=== PATIENT | female | born 1970 | race Caucasian/White ===

== ENCOUNTER 2017-09-30 19:55 | Emergency (ER) | payer MEDICARE, MEDICAID ==
[~2017-09-30] VITALS: Ht 167.6 cm; Wt 68.2 kg
[~2017-09-30 19:55] MED LIST: AMLO-511 PO; BUSP15 PO; DIPH25 PO; HYDR-4031 PO; METO25 PO; QUET200T PO
[2017-09-30] MEDS ORDERED: LISI-660 PO (20:08)
[2017-09-30] MEDS ORDERED: SODIUM CHLORIDE 0.9% 1,000 ML IV ONE (20:45)
[2017-09-30 21:00] LABS: BASOPHILS # (AUTO) 0.04 K/uL (0.00-0.20); BASOPHILS % (AUTO) 0.4 % (0.0-2.0); EOSINOPHILS # (AUTO) 0.01 K/uL (0.00-0.70); EOSINOPHILS % (AUTO) 0.11 % (1.0-6.0); HEMATOCRIT 32.4 % (36-46); HEMOGLOBIN 10.7 g/dL (12.0-16.0); LYMPHOCYTES # (AUTO) 1.2 K/uL (1.0-4.8); LYMPHOCYTES % (AUTO) 14.5 % (22.0-44.0); MEAN CORPUSCULAR HEMOGLOBIN 29.4 pg (26.0-34.0); MEAN CORPUSCULAR HGB CONC 33.2 G/dL (31.0-37.0); MEAN CORPUSCULAR VOLUME 89 fL (80-100); MONOCYTES # (AUTO) 0.9 K/uL (0.1-1.0); MONOCYTES % (AUTO) 11.4 % (2.0-9.0); NEUTROPHILS % (AUTO) 73.6 % (40.0-70.0); PLATELET COUNT (AUTO) 208 K/uL (150-450); RED BLOOD CELL COUNT(AUTO) 3.65 MIL/uL (4.00-5.20); RED CELL DISTRIBUTION WIDTH 14.5 % (11.5-14.5); WHITE BLOOD COUNT (AUTO) 8.2 K/uL (4.5-11.0)
[2017-09-30 21:10] LABS: ANION GAP 7 mmol/L (8-16); CALCIUM, TOTAL 8.1 mg/dL (8.8-10.5); CARBON DIOXIDE 28 mmol/L (22-29); CHLORIDE 100 mmol/L (98-107); CREATININE 0.63 mg/dL (0.60-1.30); GLOMERULAR FILTR. RATE CALC > 60 mL/min (>60); POTASSIUM 3.4 mmol/L (3.5-5.1); SODIUM SERUM 135 mmol/L (136-145); UREA NITROGEN, BLOOD 6 mg/dL (7-18)
[2017-09-30 21:17] LABS: ALANINE AMINOTRANSFERASE 47 U/L (12-78); ASPARTATE AMINOTRANSFERASE 51 U/L (15-37); BILIRUBIN,TOTAL 0.6 mg/dL (0.1-1.0); TOTAL PROTEIN, SERUM 6.2 g/dL (6.4-8.2)
[2017-09-30] MEDS ORDERED: POTASSIUM CHLORIDE 20 MEQ ER TABLET PO ONE (21:30)
[2017-09-30] MEDS ORDERED: KETOROLAC TROMETHAMINE 30 MG/ML VIAL IVP ONE (21:30)
[2017-09-30 22:30] LABS: INFLUENZA TYPE B POSITIVE FOR TYPE B (NEGATIVE)
[2017-09-30 22:42] VITALS: BP 176/82
== END 2017-10-01 04:55 | disposition home or self-care (01) ==
LOC: EMS 20:00
DX: J11.1 Influenza due to unidentified influenza virus with other respiratory manifestations (principal); R10.9 Unspecified abdominal pain; R11.0 Nausea; F17.210 Nicotine dependence, cigarettes, uncomplicated; F19.90 Other psychoactive substance use, unspecified, uncomplicated; Z88.0 Allergy status to penicillin; Z59.0 Homelessness
CPT/HCPCS: 36415; 80053; 84703; 85025; 87804; 96374; 99285; J1885; J7030

== ENCOUNTER 2017-10-26 15:02 | Emergency (ER) | payer MEDICARE, MEDICAID ==
[~2017-10-26] VITALS: Ht 167.6 cm; Wt 77.3 kg
[~2017-10-26 15:02] MED LIST changes: -AMLO-511 PO; +LISI-660 PO
[2017-10-26] MEDS ORDERED: OSEL75 PO (15:20)
[2017-10-26 16:42] VITALS: BP 128/75
== END 2017-10-26 17:20 | disposition home or self-care (01) ==
LOC: EMS 15:04
DX: J40 Bronchitis, not specified as acute or chronic (principal); J06.9 Acute upper respiratory infection, unspecified; F17.210 Nicotine dependence, cigarettes, uncomplicated; F19.90 Other psychoactive substance use, unspecified, uncomplicated; Z88.0 Allergy status to penicillin
CPT/HCPCS: 99283

== ENCOUNTER 2018-05-14 11:06 | Inpatient (IN) | payer MEDICARE, MEDICAID ==
[~2018-05-14] VITALS: Ht 167.6 cm; Wt 80.5 kg
[~2018-05-14 11:06] MED LIST changes: +AMLO5TAB4 PO; -BUSP15 PO; -DIPH25 PO; -HYDR-4031 PO; -LISI-660 PO; -METO25 PO
[2018-05-14 13:06] VITALS: BP 127/70
[2018-05-14 13:25] VITALS: BP 125/90
[2018-05-14] MEDS ORDERED: MAG HYDROX/AL HYDROX/SIMETH ES 30 ML SUSPENSION UDCUP PO PRN (13:30)
[2018-05-14] MEDS ORDERED: TUBERCULIN, PURIFIED PROTEIN DERIVATIVE 5 TU/0.1 ML SYG ID ONE (13:30)
[2018-05-14] MEDS ORDERED: HydrOXYzine PAMOATE 50 MG CAPSULE PO PRN (13:30)
[2018-05-14] MEDS ORDERED: GuaiFENesin/D-METHORPHAN [SUGAR-FREE] 200-20MG/10 ML SYRUP UDCUP PO PRN (13:30)
[2018-05-14] MEDS ORDERED: MAGNESIUM HYDROXIDE SUSPENSION 30 ML UDCUP PO PRN (13:30)
[2018-05-14] MEDS ORDERED: PROMETHAZINE HCL 25 MG TABLET PO PRN (13:30)
[2018-05-14] MEDS ORDERED: LOPERAMIDE HCL 2 MG CAPSULE PO PRN (13:30)
[2018-05-14] MEDS ORDERED: ACETAMINOPHEN 325 MG TABLET PO PRN (13:30)
[2018-05-14] MEDS ORDERED: LISI-662 PO (13:45)
[2018-05-14] MEDS ORDERED: DULO20CA30 PO (13:45)
[2018-05-14] MEDS ORDERED: BENZ1TAB10 PO (13:45)
[2018-05-14] MEDS ORDERED: BUSP10TA23 PO (13:45)
[2018-05-14] MEDS ORDERED: TERB250 PO (13:45)
[2018-05-14] MEDS ORDERED: PNEUMOCOCCAL VACCINE POLYVALENT 0.5 ML VIAL [PPSV23] IM ONE (14:30)
[2018-05-14 16:07] VITALS: BP 133/78
[2018-05-14] MEDS: BusPIRone HCL 15 MG TABLET PO SCH (16:26)
[2018-05-14] MEDS: THIAMINE HCL 100 MG TABLET PO SCH (16:27)
[2018-05-14] MEDS: BENZTROPINE MESYLATE 1 MG TABLET PO SCH (20:06)
[2018-05-14] MEDS ORDERED: QUEtiapine FUMARATE 200 MG TABLET PO SCH (21:00)
[2018-05-15 05:11] VITALS: BP 122/68
[2018-05-15] MEDS ORDERED: PETROLATUM,WHITE 71 GM JELLY TP PRN (06:45)
[2018-05-15] MEDS ORDERED: CloNIDine HCL 0.1 MG TABLET PO PRN (06:45)
[2018-05-15] MEDS ORDERED: ALBUTEROL SULFATE HFA 90 MCG/PUFF 8 GM INHALER IH PRN (06:45)
[2018-05-15] MEDS ORDERED: BENZOCAINE/MENTHOL LOZENGE MM PRN (06:45)
[2018-05-15] MEDS ORDERED: BACITRACIN 28.4 GM OINTMENT TP PRN (06:45)
[2018-05-15] MEDS ORDERED: ONDANSETRON HCL 4 MG TABLET PO PRN (06:45)
[2018-05-15] MEDS ORDERED: IBUPROFEN 600 MG TABLET PO PRN (06:45)
[2018-05-15] MEDS ORDERED: LOPERAMIDE HCL 2 MG CAPSULE PO PRN (06:45)
[2018-05-15 08:18] VITALS: BP 131/78
[2018-05-15] MEDS: NALTREXONE HCL 50 MG TABLET PO SCH (08:33)
[2018-05-15] MEDS: DOCUSATE SODIUM 100 MG CAPSULE PO SCH (08:33)
[2018-05-15] MEDS: DULoxetine HCL 60 MG CAPSULE PO SCH (08:33)
[2018-05-15] MEDS: LISINOPRIL 20 MG TABLET PO SCH (08:33)
[2018-05-15] MEDS: THIAMINE HCL 100 MG TABLET PO SCH ×2 (08:33→16:13)
[2018-05-15] MEDS: OMEPRAZOLE 20 MG CAPSULE PO SCH (08:33)
[2018-05-15] MEDS: FOLIC ACID 1 MG TABLET PO SCH (08:33)
[2018-05-15] MEDS: MULTIVITAMINS WITH MINERALS, THERAPEUTIC TABLET PO SCH (08:33)
[2018-05-15] MEDS: BusPIRone HCL 15 MG TABLET PO SCH ×2 (08:33→16:13)
[2018-05-15 08:46] LABS: BASOPHILS % (AUTO) 0.6 % (0.0-2.0); HEMATOCRIT 34.9 % (36-46); HEMOGLOBIN 11.7 g/dL (12.0-16.0); LYMPHOCYTES # (AUTO) 1.4 K/uL (1.0-4.8); LYMPHOCYTES % (AUTO) 18.8 % (22.0-44.0); MEAN CORPUSCULAR HEMOGLOBIN 29.2 pg (26.0-34.0); MEAN CORPUSCULAR HGB CONC 33.4 G/dL (31.0-37.0); MEAN CORPUSCULAR VOLUME 87 fL (80-100); MONOCYTES # (AUTO) 0.7 K/uL (0.1-1.0); MONOCYTES % (AUTO) 9.6 % (2.0-9.0); NEUTROPHILS # (AUTO) 5.2 K/uL (1.8-7.7); PLATELET COUNT (AUTO) 226 K/uL (150-450); RED CELL DISTRIBUTION WIDTH 15.8 % (11.5-14.5)
[2018-05-15 08:49] LABS: HEMOGLOBIN A1C 5.4 % (4.5-6.2)
[2018-05-15 09:14] LABS: ALANINE AMINOTRANSFERASE 30 U/L (12-78); ALBUMIN 2.7 g/dL (3.4-5.0); ALKALINE PHOSPHATASE 50 U/L (46-116); ANION GAP 6 mmol/L (8-16); ASPARTATE AMINOTRANSFERASE 27 U/L (15-37); BILIRUBIN,TOTAL 0.3 mg/dL (0.1-1.0); CARBON DIOXIDE 28 mmol/L (22-29); CHLORIDE 108 mmol/L (98-107); CHOL/HDL RATIO 1.7 (3.9-5.7); CHOLESTEROL 138 mg/dL (131-200); CREATININE 0.76 mg/dL (0.60-1.30); FREE T4 (FREE THYROXINE) 0.98 ng/dL (0.76-1.46); GLOMERULAR FILTR. RATE CALC > 60 mL/min (>60); GLUCOSE,RANDOM 143 mg/dL (70-110); HCG,QUANTITATIVE < 1 mIU/mL (0-6); HDL CHOLESTEROL 81 mg/dL (40-60); LDL CHOL (CALC.) 46 mg/dL (0-130); SODIUM SERUM 142 mmol/L (136-145); THYROID STIMULATING HORMONE 0.45 uIU/mL (0.36-3.74); TOTAL PROTEIN, SERUM 5.9 g/dL (6.4-8.2); TRIGLYCERIDES 56 mg/dL (15-150); UREA NITROGEN, BLOOD 25 mg/dL (7-18)
[2018-05-15] MEDS: LORazepam 1 MG TABLET PO PRN (16:48)
[2018-05-15] MEDS: BENZTROPINE MESYLATE 1 MG TABLET PO SCH (20:33)
[2018-05-15] MEDS: QUEtiapine FUMARATE 200 MG TABLET PO SCH (20:33)
[2018-05-15 20:48] VITALS: BP 148/81
[2018-05-15 21:33] VITALS: BP 137/78
[2018-05-16 06:31] VITALS: BP 138/89
[2018-05-16 08:50] LABS: APPEARANCE,URINE TURBID (CLEAR); BILIRUBIN,URINE NEGATIVE (NEGATIVE); GLUCOSE, URINE (UA) NEGATIVE (NEGATIVE); KETONES,URINE NEGATIVE (NEGATIVE); LEUKOCYTE ESTERASE ,URINE NEGATIVE (NEGATIVE); NITRATE,URINE NEGATIVE (NEGATIVE); OCCULT BLOOD,URINE NEGATIVE (NEGATIVE); PROTEIN,URINE NEGATIVE (NEGATIVE)
[2018-05-16 08:59] LABS: BACTERIA,URINE Few /HPF (None Seen); RBC,URINE None Seen /HPF (0-2); SQUAMOUS EPITHELIAL CELL,UR Moderate /LPF (None Seen); WBC,URINE None Seen /HPF (0-5)
[2018-05-16 09:02] LABS: AMPHET/METH SCREEN,URINE POSITIVE (NEGATIVE); BARBITURATE SCREEN, URINE NEGATIVE (NEGATIVE); BENZODIAZEPINES SCREEN,URINE NEGATIVE (NEGATIVE); CANNABINOID SCREEN,URINE NEGATIVE (NEGATIVE); COCAINE SCREEN,URINE NEGATIVE (NEGATIVE); METHADONE SCREEN, URINE NEGATIVE (NEGATIVE); OPIATE SCREEN,URINE NEGATIVE (NEGATIVE); PHENCYCLIDINE SCREEN,URINE NEGATIVE (NEGATIVE)
[2018-05-16] MEDS: NALTREXONE HCL 50 MG TABLET PO SCH (09:08)
[2018-05-16] MEDS: CHOLECALCIFEROL (VIT D3) 1,000 UNITS TABLET PO SCH (09:08)
[2018-05-16] MEDS: DULoxetine HCL 60 MG CAPSULE PO SCH (09:08)
[2018-05-16] MEDS: OMEPRAZOLE 20 MG CAPSULE PO SCH (09:08)
[2018-05-16] MEDS: BusPIRone HCL 15 MG TABLET PO SCH ×2 (09:08→17:11)
[2018-05-16] MEDS: MULTIVITAMINS WITH MINERALS, THERAPEUTIC TABLET PO SCH (09:08)
[2018-05-16] MEDS: LISINOPRIL 20 MG TABLET PO SCH (09:09)
[2018-05-16] MEDS: THIAMINE HCL 100 MG TABLET PO SCH ×2 (09:10→17:11)
[2018-05-16] MEDS: FOLIC ACID 1 MG TABLET PO SCH (09:10)
[2018-05-16] MEDS: DOCUSATE SODIUM 100 MG CAPSULE PO SCH (09:10)
[2018-05-16 18:19] VITALS: BP 140/85
[2018-05-16] MEDS: QUEtiapine FUMARATE 200 MG TABLET PO SCH (19:58)
[2018-05-16] MEDS: BENZTROPINE MESYLATE 1 MG TABLET PO SCH (19:59)
[2018-05-17 00:15] VITALS: BP 144/79
[2018-05-17] MEDS: LORazepam 1 MG TABLET PO PRN (07:00)
[2018-05-17] MEDS: NALTREXONE HCL 50 MG TABLET PO SCH (08:21)
[2018-05-17] MEDS: LISINOPRIL 20 MG TABLET PO SCH (08:21)
[2018-05-17] MEDS: FOLIC ACID 1 MG TABLET PO SCH (08:21)
[2018-05-17] MEDS: OMEPRAZOLE 20 MG CAPSULE PO SCH (08:21)
[2018-05-17] MEDS: DOCUSATE SODIUM 100 MG CAPSULE PO SCH (08:21)
[2018-05-17] MEDS: DULoxetine HCL 60 MG CAPSULE PO SCH (08:21)
[2018-05-17] MEDS: CHOLECALCIFEROL (VIT D3) 1,000 UNITS TABLET PO SCH (08:21)
[2018-05-17] MEDS: THIAMINE HCL 100 MG TABLET PO SCH ×2 (08:21→16:03)
[2018-05-17] MEDS: MULTIVITAMINS WITH MINERALS, THERAPEUTIC TABLET PO SCH (08:21)
[2018-05-17] MEDS: BusPIRone HCL 15 MG TABLET PO SCH ×2 (08:21→16:03)
[2018-05-17 08:31] VITALS: BP 155/93
[2018-05-17 12:53] VITALS: BP 183/93
[2018-05-17 13:53] VITALS: BP 157/93
[2018-05-17 14:34] VITALS: BP 141/88
[2018-05-17 20:00] VITALS: BP 140/89
[2018-05-17] MEDS: QUEtiapine FUMARATE 200 MG TABLET PO SCH (20:08)
[2018-05-17] MEDS: BENZTROPINE MESYLATE 1 MG TABLET PO SCH (20:08)
[2018-05-18 02:24] VITALS: BP 143/87
[2018-05-18 08:27] VITALS: BP 155/81
[2018-05-18] MEDS: MULTIVITAMINS WITH MINERALS, THERAPEUTIC TABLET PO SCH (08:30)
[2018-05-18] MEDS: LISINOPRIL 20 MG TABLET PO SCH (08:30)
[2018-05-18] MEDS: BusPIRone HCL 15 MG TABLET PO SCH ×2 (08:30→16:37)
[2018-05-18] MEDS: OMEPRAZOLE 20 MG CAPSULE PO SCH (08:30)
[2018-05-18] MEDS: NALTREXONE HCL 50 MG TABLET PO SCH (08:30)
[2018-05-18] MEDS: CHOLECALCIFEROL (VIT D3) 1,000 UNITS TABLET PO SCH (08:30)
[2018-05-18] MEDS: DOCUSATE SODIUM 100 MG CAPSULE PO SCH (08:30)
[2018-05-18] MEDS: FOLIC ACID 1 MG TABLET PO SCH (08:30)
[2018-05-18] MEDS: THIAMINE HCL 100 MG TABLET PO SCH ×2 (08:31→16:37)
[2018-05-18] MEDS: DULoxetine HCL 60 MG CAPSULE PO SCH (08:31)
[2018-05-18] MEDS: LORazepam 1 MG TABLET PO PRN ×2 (08:35→16:37)
[2018-05-18] MEDS ORDERED: ATENOLOL 50 MG TABLET PO SCH (09:00)
[2018-05-18] MEDS: ATENOLOL 25 MG TABLET PO SCH (12:16)
[2018-05-18 13:57] VITALS: BP 140/98
[2018-05-18 16:04] VITALS: BP 140/62
[2018-05-18] MEDS: QUEtiapine FUMARATE 100 MG TABLET PO PRN (16:37)
[2018-05-18] MEDS: BENZTROPINE MESYLATE 1 MG TABLET PO SCH (20:48)
[2018-05-18] MEDS: ZOLPIDEM TARTRATE 10 MG TABLET PO PRN (20:49)
[2018-05-18] MEDS: QUEtiapine FUMARATE 200 MG TABLET PO SCH (20:49)
[2018-05-19 06:08] VITALS: BP 136/90
[2018-05-19 08:43] VITALS: BP 124/64
[2018-05-19] MEDS: ATENOLOL 25 MG TABLET PO SCH (09:00)
[2018-05-19 09:22] VITALS: BP 118/68
[2018-05-19] MEDS: DULoxetine HCL 60 MG CAPSULE PO SCH (09:31)
[2018-05-19] MEDS: LISINOPRIL 20 MG TABLET PO SCH (09:31)
[2018-05-19] MEDS: THIAMINE HCL 100 MG TABLET PO SCH ×2 (09:31→16:33)
[2018-05-19] MEDS: OMEPRAZOLE 20 MG CAPSULE PO SCH (09:31)
[2018-05-19] MEDS: FOLIC ACID 1 MG TABLET PO SCH (09:31)
[2018-05-19] MEDS: NALTREXONE HCL 50 MG TABLET PO SCH (09:31)
[2018-05-19] MEDS: MULTIVITAMINS WITH MINERALS, THERAPEUTIC TABLET PO SCH (09:32)
[2018-05-19] MEDS: CHOLECALCIFEROL (VIT D3) 1,000 UNITS TABLET PO SCH (09:32)
[2018-05-19] MEDS: DOCUSATE SODIUM 100 MG CAPSULE PO SCH (09:32)
[2018-05-19] MEDS: BusPIRone HCL 10 MG TABLET PO SCH ×2 (09:32→16:33)
[2018-05-19] MEDS: LORazepam 1 MG TABLET PO PRN (16:33)
[2018-05-19] MEDS: QUEtiapine FUMARATE 100 MG TABLET PO PRN (16:33)
[2018-05-19 16:34] VITALS: BP 118/76
[2018-05-19] MEDS: QUEtiapine FUMARATE 200 MG TABLET PO SCH (20:23)
[2018-05-19] MEDS: BENZTROPINE MESYLATE 1 MG TABLET PO SCH (20:23)
[2018-05-19] MEDS: ZOLPIDEM TARTRATE 10 MG TABLET PO PRN (20:24)
[2018-05-20 06:35] VITALS: BP 134/74
[2018-05-20] MEDS: MULTIVITAMINS WITH MINERALS, THERAPEUTIC TABLET PO SCH (08:20)
[2018-05-20] MEDS: CHOLECALCIFEROL (VIT D3) 1,000 UNITS TABLET PO SCH (08:20)
[2018-05-20] MEDS: LISINOPRIL 20 MG TABLET PO SCH (08:20)
[2018-05-20] MEDS: FOLIC ACID 1 MG TABLET PO SCH (08:20)
[2018-05-20] MEDS: THIAMINE HCL 100 MG TABLET PO SCH (08:20)
[2018-05-20] MEDS: BusPIRone HCL 10 MG TABLET PO SCH (08:20)
[2018-05-20] MEDS: DOCUSATE SODIUM 100 MG CAPSULE PO SCH (08:20)
[2018-05-20] MEDS: ATENOLOL 25 MG TABLET PO SCH (08:20)
[2018-05-20] MEDS: OMEPRAZOLE 20 MG CAPSULE PO SCH (08:20)
[2018-05-20] MEDS: DULoxetine HCL 60 MG CAPSULE PO SCH (08:23)
[2018-05-20 08:24] VITALS: BP 128/65
[2018-05-20] MEDS: NALTREXONE HCL 50 MG TABLET PO SCH (08:26)
[2018-05-20] MEDS: LORazepam 1 MG TABLET PO PRN (09:40)
[2018-05-20] MEDS ORDERED: NALT50TA6 PO (11:49)
[2018-05-20] MEDS ORDERED: THIA100T67 PO (11:49)
[2018-05-20] MEDS ORDERED: VITAD1000 PO (11:49)
[2018-05-20] MEDS ORDERED: FOLI1 PO (11:49)
[2018-05-20] MEDS ORDERED: ATEN25TA PO (11:49)
== END 2018-05-20 13:30 | disposition home or self-care (01) | DRG 885 ==
LOC: B3A 13:04
PROVIDERS: ADMIT Psychiatry & Neurology Psychiatry; ATTEND Psychiatry & Neurology Psychiatry
DX: F25.1 Schizoaffective disorder, depressive type (principal); R45.851 Suicidal ideations; D64.9 Anemia, unspecified; E83.51 Hypocalcemia; F10.20 Alcohol dependence, uncomplicated; F12.20 Cannabis dependence, uncomplicated; F41.9 Anxiety disorder, unspecified; G47.00 Insomnia, unspecified; K59.00 Constipation, unspecified; I10 Essential (primary) hypertension; Z79.899 Other long term (current) drug therapy; Z81.8 Family history of other mental and behavioral disorders; Z88.0 Allergy status to penicillin; Z91.19 Patient's noncompliance with other medical treatment and regimen; Z28.21 Immunization not carried out because of patient refusal
CPT/HCPCS: 80307; 82306; 83036; 84439; 84443

== ENCOUNTER 2018-12-18 12:06 | Inpatient (IN) | payer MEDICARE, MEDICAID ==
[~2018-12-18] VITALS: Ht 168.9 cm; Wt 82.4 kg
[~2018-12-18 12:06] MED LIST changes: -AMLO5TAB4 PO; +ATEN25TA PO; +BENZ1TAB10 PO; +BUSP10TA23 PO; +DULO20CA30 PO; +FOLI1 PO; +LISI-662 PO; +NALT50TA6 PO; +THIA100T67 PO; +VITAD1000 PO
[2018-12-18] MEDS ORDERED: ZOLPIDEM TARTRATE 10 MG TABLET PO PRN (18:45)
[2018-12-18] MEDS ORDERED: HALOPERIDOL 5 MG TABLET PO PRN (18:45)
[2018-12-18] MEDS ORDERED: DOCUSATE SODIUM 100 MG CAPSULE PO PRN (19:45)
[2018-12-18] MEDS ORDERED: MAG HYDROX/AL HYDROX/SIMETH ES 30 ML SUSPENSION UDCUP PO PRN (19:45)
[2018-12-18] MEDS ORDERED: ONDANSETRON HCL 4 MG TABLET PO PRN (19:45)
[2018-12-18] MEDS ORDERED: MAGNESIUM HYDROXIDE SUSPENSION 30 ML UDCUP PO PRN (19:45)
[2018-12-18] MEDS ORDERED: LOPERAMIDE HCL 2 MG CAPSULE PO PRN (19:45)
[2018-12-18] MEDS ORDERED: IBUPROFEN 400 MG TABLET PO PRN (19:45)
[2018-12-18] MEDS ORDERED: ALBUTEROL SULFATE HFA 90 MCG/PUFF 8 GM INHALER IH PRN (19:45)
[2018-12-18] MEDS ORDERED: ACETAMINOPHEN 325 MG TABLET PO PRN (19:45)
[2018-12-18] MEDS ORDERED: GuaiFENesin/D-METHORPHAN [SUGAR-FREE] 200-20MG/10 ML SYRUP UDCUP PO PRN (19:45)
[2018-12-18] MEDS: LISINOPRIL 20 MG TABLET PO SCH (20:12)
[2018-12-18 21:14] VITALS: BP 160/80
[2018-12-18] MEDS ORDERED: PNEUMOCOCCAL VACCINE POLYVALENT 0.5 ML VIAL [PPSV23] IM ONE (21:15)
[2018-12-18] MEDS ORDERED: CloNIDine HCL 0.1 MG TABLET PO ONE (21:30)
[2018-12-18 22:30] VITALS: BP 143/91
[2018-12-19] VITALS (10 sets, daily range): BP systolic 134–192; BP diastolic 75–106
[2018-12-19] MEDS: FOLIC ACID 1 MG TABLET PO SCH (08:30)
[2018-12-19] MEDS: CHOLECALCIFEROL (VIT D3) 1,000 UNITS TABLET PO SCH (08:30)
[2018-12-19] MEDS: LISINOPRIL 20 MG TABLET PO SCH (08:30)
[2018-12-19] MEDS ORDERED: ATENOLOL 25 MG TABLET PO SCH (09:00)
[2018-12-19] MEDS ORDERED: AmLODIPine BESYLATE 5 MG TABLET PO ONE (10:30)
[2018-12-19] MEDS: LORazepam 2 MG TABLET PO PRN ×2 (10:40→16:01)
[2018-12-19] MEDS: CloNIDine HCL 0.1 MG TABLET PO PRN ×2 (12:05→18:12)
[2018-12-19] MEDS: BusPIRone HCL 10 MG TABLET PO SCH ×2 (12:57→16:01)
[2018-12-19] MEDS: DULoxetine HCL 60 MG CAPSULE PO SCH (12:57)
[2018-12-19] MEDS: PETROLATUM,WHITE 28 GM JELLY TP PRN (16:55)
[2018-12-19] MEDS ORDERED: QUEtiapine FUMARATE 200 MG TABLET PO SCH (21:00)
[2018-12-19] MEDS: HydrALAZINE HCL 25 MG TABLET PO SCH (21:02)
[2018-12-20 08:20] VITALS: BP 136/76
[2018-12-20] MEDS: ATENOLOL 50 MG TABLET PO SCH (08:29)
[2018-12-20] MEDS: LISINOPRIL 20 MG TABLET PO SCH (08:29)
[2018-12-20] MEDS: CHOLECALCIFEROL (VIT D3) 1,000 UNITS TABLET PO SCH (08:29)
[2018-12-20] MEDS: DULoxetine HCL 60 MG CAPSULE PO SCH (08:29)
[2018-12-20] MEDS: HydrALAZINE HCL 25 MG TABLET PO SCH ×2 (08:29→20:33)
[2018-12-20] MEDS: BusPIRone HCL 10 MG TABLET PO SCH ×3 (08:30→16:21)
[2018-12-20] MEDS: FOLIC ACID 1 MG TABLET PO SCH (08:30)
[2018-12-20] MEDS ORDERED: QUEtiapine FUMARATE 200 MG TABLET PO SCH (09:00)
[2018-12-20 17:36] VITALS: BP 123/73
[2018-12-20] MEDS: LORazepam 2 MG TABLET PO PRN (19:37)
[2018-12-20 20:30] VITALS: BP 147/76
[2018-12-20] MEDS: QUEtiapine FUMARATE 200 MG TABLET PO SCH (20:33)
[2018-12-21 06:43] VITALS: BP 139/87
[2018-12-21 08:19] VITALS: BP 126/68
[2018-12-21] MEDS: FOLIC ACID 1 MG TABLET PO SCH (08:34)
[2018-12-21] MEDS: DULoxetine HCL 60 MG CAPSULE PO SCH (08:34)
[2018-12-21] MEDS: QUEtiapine FUMARATE 300 MG TABLET PO SCH (08:34)
[2018-12-21] MEDS: ATENOLOL 50 MG TABLET PO SCH (08:34)
[2018-12-21] MEDS: CHOLECALCIFEROL (VIT D3) 1,000 UNITS TABLET PO SCH (08:34)
[2018-12-21] MEDS: HydrALAZINE HCL 25 MG TABLET PO SCH ×2 (08:34→20:38)
[2018-12-21] MEDS: LISINOPRIL 20 MG TABLET PO SCH (08:34)
[2018-12-21] MEDS: BusPIRone HCL 10 MG TABLET PO SCH ×3 (08:35→16:41)
[2018-12-21 16:16] VITALS: BP 131/63
[2018-12-21 20:37] VITALS: BP 142/82
[2018-12-21] MEDS: QUEtiapine FUMARATE 200 MG TABLET PO SCH (20:39)
[2018-12-22 01:30] VITALS: BP 126/76
[2018-12-22 08:00] VITALS: BP 129/68
[2018-12-22] MEDS: FOLIC ACID 1 MG TABLET PO SCH (09:15)
[2018-12-22] MEDS: HydrALAZINE HCL 25 MG TABLET PO SCH ×2 (09:15→20:31)
[2018-12-22] MEDS: BusPIRone HCL 10 MG TABLET PO SCH ×3 (09:15→16:36)
[2018-12-22] MEDS: ATENOLOL 50 MG TABLET PO SCH (09:15)
[2018-12-22] MEDS: CHOLECALCIFEROL (VIT D3) 1,000 UNITS TABLET PO SCH (09:19)
[2018-12-22] MEDS: LISINOPRIL 20 MG TABLET PO SCH (09:19)
[2018-12-22] MEDS: DULoxetine HCL 60 MG CAPSULE PO SCH ×2 (09:19→16:36)
[2018-12-22] MEDS: QUEtiapine FUMARATE 300 MG TABLET PO SCH (09:22)
[2018-12-22 16:11] VITALS: BP 120/78
[2018-12-22] MEDS: LORazepam 2 MG TABLET PO PRN (18:21)
[2018-12-22 18:22] VITALS: BP 130/71
[2018-12-22 20:13] VITALS: BP 142/90
[2018-12-22] MEDS: QUEtiapine FUMARATE 200 MG TABLET PO SCH (20:31)
[2018-12-23 02:39] VITALS: BP 132/78
[2018-12-23 08:30] VITALS: BP 143/60
[2018-12-23 08:41] LABS: BASOPHILS % (AUTO) 0.8 % (0.0-2.0); EOSINOPHILS % (AUTO) 1.9 % (1.0-6.0); HEMATOCRIT 41.4 % (36-46); HEMOGLOBIN 13.4 g/dL (12.0-16.0); HEMOGLOBIN A1C 5.3 % (4.5-6.2); LYMPHOCYTES # (AUTO) 1.6 K/uL (1.0-4.8); LYMPHOCYTES % (AUTO) 38.8 % (22.0-44.0); MEAN CORPUSCULAR HEMOGLOBIN 28.9 pg (26.0-34.0); MEAN CORPUSCULAR HGB CONC 32.3 G/dL (31.0-37.0); MEAN CORPUSCULAR VOLUME 89 fL (80-100); MONOCYTES # (AUTO) 0.4 K/uL (0.1-1.0); MONOCYTES % (AUTO) 10.4 % (2.0-9.0); NEUTROPHILS % (AUTO) 48.1 % (40.0-70.0); PLATELET COUNT (AUTO) 266 K/uL (150-450); RED BLOOD CELL COUNT(AUTO) 4.63 MIL/uL (4.00-5.20); RED CELL DISTRIBUTION WIDTH 15.6 % (11.5-14.5)
[2018-12-23 08:45] VITALS: BP 122/82
[2018-12-23] MEDS: DULoxetine HCL 60 MG CAPSULE PO SCH ×2 (08:46→16:56)
[2018-12-23] MEDS: ATENOLOL 50 MG TABLET PO SCH (08:46)
[2018-12-23] MEDS: CHOLECALCIFEROL (VIT D3) 1,000 UNITS TABLET PO SCH (08:46)
[2018-12-23] MEDS: LISINOPRIL 20 MG TABLET PO SCH (08:46)
[2018-12-23] MEDS: HydrALAZINE HCL 25 MG TABLET PO SCH ×2 (08:46→20:39)
[2018-12-23] MEDS: QUEtiapine FUMARATE 300 MG TABLET PO SCH (08:46)
[2018-12-23] MEDS: FOLIC ACID 1 MG TABLET PO SCH (08:46)
[2018-12-23] MEDS: BusPIRone HCL 10 MG TABLET PO SCH ×3 (08:46→16:56)
[2018-12-23 09:10] LABS: ALANINE AMINOTRANSFERASE 25 U/L (12-78); ALBUMIN 2.9 g/dL (3.4-5.0); ALKALINE PHOSPHATASE 43 U/L (46-116); ANION GAP 7 mmol/L (8-16); ASPARTATE AMINOTRANSFERASE 20 U/L (15-37); BILIRUBIN,TOTAL 0.4 mg/dL (0.1-1.0); CALCIUM, TOTAL 8.9 mg/dL (8.8-10.5); CARBON DIOXIDE 28 mmol/L (22-29); CHLORIDE 102 mmol/L (98-107); CHOL/HDL RATIO 3.3 (3.9-5.7); CHOLESTEROL 192 mg/dL (131-200); CREATININE 0.75 mg/dL (0.60-1.30); FREE T4 (FREE THYROXINE) 0.65 ng/dL (0.76-1.46); GLOMERULAR FILTR. RATE CALC > 60 mL/min (>60); GLUCOSE,RANDOM 129 mg/dL (70-110); HCG,QUANTITATIVE < 1 mIU/mL (0-6); HDL CHOLESTEROL 59 mg/dL (40-60); LDL CHOL (CALC.) 111 mg/dL (0-130); POTASSIUM 4.6 mmol/L (3.5-5.1); SODIUM SERUM 137 mmol/L (136-145); THYROID STIMULATING HORMONE 0.47 uIU/mL (0.36-3.74); TOTAL PROTEIN, SERUM 6.5 g/dL (6.4-8.2); TRIGLYCERIDES 110 mg/dL (15-150); UREA NITROGEN, BLOOD 27 mg/dL (7-18)
[2018-12-23 16:45] VITALS: BP 100/57
[2018-12-23 20:38] VITALS: BP 135/85
[2018-12-23] MEDS: QUEtiapine FUMARATE 200 MG TABLET PO SCH (20:39)
[2018-12-24 01:36] VITALS: BP 126/82
[2018-12-24 08:10] VITALS: BP 122/71
[2018-12-24] MEDS: QUEtiapine FUMARATE 300 MG TABLET PO SCH (08:25)
[2018-12-24] MEDS: HydrALAZINE HCL 25 MG TABLET PO SCH ×2 (08:25→21:03)
[2018-12-24] MEDS: CHOLECALCIFEROL (VIT D3) 1,000 UNITS TABLET PO SCH (08:25)
[2018-12-24] MEDS: LISINOPRIL 20 MG TABLET PO SCH (08:25)
[2018-12-24] MEDS: BusPIRone HCL 10 MG TABLET PO SCH ×3 (08:25→16:35)
[2018-12-24] MEDS: DULoxetine HCL 60 MG CAPSULE PO SCH ×2 (08:25→16:35)
[2018-12-24] MEDS: ATENOLOL 50 MG TABLET PO SCH (08:25)
[2018-12-24] MEDS: FOLIC ACID 1 MG TABLET PO SCH (08:25)
[2018-12-24] MEDS: LORazepam 2 MG TABLET PO PRN (13:57)
[2018-12-24 16:23] VITALS: BP 129/64
[2018-12-24 21:00] VITALS: BP 135/71
[2018-12-24] MEDS: QUEtiapine FUMARATE 200 MG TABLET PO SCH (21:03)
[2018-12-25 00:15] VITALS: BP 102/60
[2018-12-25 08:09] VITALS: BP 125/77
[2018-12-25] MEDS: BusPIRone HCL 10 MG TABLET PO SCH ×3 (08:41→16:28)
[2018-12-25] MEDS: LISINOPRIL 20 MG TABLET PO SCH (08:41)
[2018-12-25] MEDS: HydrALAZINE HCL 25 MG TABLET PO SCH ×2 (08:41→20:33)
[2018-12-25] MEDS: ATENOLOL 50 MG TABLET PO SCH (08:41)
[2018-12-25] MEDS: CHOLECALCIFEROL (VIT D3) 1,000 UNITS TABLET PO SCH (08:41)
[2018-12-25] MEDS: DULoxetine HCL 60 MG CAPSULE PO SCH ×2 (08:41→16:28)
[2018-12-25] MEDS: QUEtiapine FUMARATE 300 MG TABLET PO SCH (08:41)
[2018-12-25] MEDS: FOLIC ACID 1 MG TABLET PO SCH (08:41)
[2018-12-25 18:19] VITALS: BP 102/63
[2018-12-25] MEDS: LORazepam 2 MG TABLET PO PRN (19:00)
[2018-12-25 20:30] VITALS: BP 129/72
[2018-12-25] MEDS: QUEtiapine FUMARATE 200 MG TABLET PO SCH (20:33)
[2018-12-26 06:04] VITALS: BP 124/76
[2018-12-26 08:08] VITALS: BP 121/60
[2018-12-26] MEDS: BusPIRone HCL 10 MG TABLET PO SCH ×3 (08:21→16:44)
[2018-12-26] MEDS: QUEtiapine FUMARATE 300 MG TABLET PO SCH (08:22)
[2018-12-26] MEDS: DULoxetine HCL 60 MG CAPSULE PO SCH ×2 (08:22→16:44)
[2018-12-26] MEDS: ATENOLOL 50 MG TABLET PO SCH (08:22)
[2018-12-26] MEDS: LISINOPRIL 20 MG TABLET PO SCH (08:22)
[2018-12-26] MEDS: HydrALAZINE HCL 25 MG TABLET PO SCH ×2 (08:22→20:35)
[2018-12-26] MEDS: CHOLECALCIFEROL (VIT D3) 1,000 UNITS TABLET PO SCH (08:22)
[2018-12-26] MEDS: FOLIC ACID 1 MG TABLET PO SCH (08:22)
[2018-12-26 16:07] VITALS: BP 118/90
[2018-12-26] MEDS: TOPIRAMATE 25 MG TABLET PO SCH (16:44)
[2018-12-26 20:34] VITALS: BP 134/80
[2018-12-26] MEDS: QUEtiapine FUMARATE 200 MG TABLET PO SCH (20:35)
[2018-12-27 02:53] VITALS: BP 116/65
[2018-12-27] MEDS: CHOLECALCIFEROL (VIT D3) 1,000 UNITS TABLET PO SCH (08:52)
[2018-12-27] MEDS: QUEtiapine FUMARATE 300 MG TABLET PO SCH (08:52)
[2018-12-27] MEDS: BusPIRone HCL 10 MG TABLET PO SCH ×3 (08:52→16:55)
[2018-12-27] MEDS: HydrALAZINE HCL 25 MG TABLET PO SCH ×2 (08:52→20:38)
[2018-12-27] MEDS: FOLIC ACID 1 MG TABLET PO SCH (08:52)
[2018-12-27] MEDS: TOPIRAMATE 25 MG TABLET PO SCH ×2 (08:52→16:56)
[2018-12-27] MEDS: ATENOLOL 50 MG TABLET PO SCH (08:52)
[2018-12-27] MEDS: DULoxetine HCL 60 MG CAPSULE PO SCH ×2 (08:52→16:56)
[2018-12-27] MEDS: LISINOPRIL 20 MG TABLET PO SCH (08:52)
[2018-12-27 08:55] LABS: BASOPHILS % (AUTO) 1.1 % (0.0-2.0); EOSINOPHILS % (AUTO) 2.1 % (1.0-6.0); HEMATOCRIT 37.3 % (36-46); HEMOGLOBIN 12.1 g/dL (12.0-16.0); LYMPHOCYTES # (AUTO) 1.7 K/uL (1.0-4.8); LYMPHOCYTES % (AUTO) 34.9 % (22.0-44.0); MEAN CORPUSCULAR HEMOGLOBIN 29.3 pg (26.0-34.0); MEAN CORPUSCULAR HGB CONC 32.6 G/dL (31.0-37.0); MEAN CORPUSCULAR VOLUME 90 fL (80-100); MONOCYTES # (AUTO) 0.5 K/uL (0.1-1.0); MONOCYTES % (AUTO) 10.7 % (2.0-9.0); NEUTROPHILS # (AUTO) 2.5 K/uL (1.8-7.7); NEUTROPHILS % (AUTO) 51.2 % (40.0-70.0); PLATELET COUNT (AUTO) 271 K/uL (150-450); RED BLOOD CELL COUNT(AUTO) 4.15 MIL/uL (4.00-5.20); RED CELL DISTRIBUTION WIDTH 15.5 % (11.5-14.5)
[2018-12-27 09:22] VITALS: BP 123/60
[2018-12-27] MEDS: NICOTINE 14 MG/24 HOUR PATCH TD PRN (16:24)
[2018-12-27 16:25] VITALS: BP 116/63
[2018-12-27 20:37] VITALS: BP 139/71
[2018-12-27] MEDS: QUEtiapine FUMARATE 200 MG TABLET PO SCH (20:38)
[2018-12-28 00:48] VITALS: BP 112/68
[2018-12-28] MEDS: CHOLECALCIFEROL (VIT D3) 1,000 UNITS TABLET PO SCH (08:06)
[2018-12-28] MEDS: QUEtiapine FUMARATE 300 MG TABLET PO SCH (08:06)
[2018-12-28] MEDS: ATENOLOL 50 MG TABLET PO SCH (08:06)
[2018-12-28] MEDS: LISINOPRIL 20 MG TABLET PO SCH (08:06)
[2018-12-28] MEDS: BusPIRone HCL 10 MG TABLET PO SCH ×3 (08:06→17:38)
[2018-12-28] MEDS: FOLIC ACID 1 MG TABLET PO SCH (08:06)
[2018-12-28] MEDS: HydrALAZINE HCL 25 MG TABLET PO SCH ×2 (08:06→20:48)
[2018-12-28] MEDS: TOPIRAMATE 25 MG TABLET PO SCH (08:06)
[2018-12-28] MEDS: DULoxetine HCL 60 MG CAPSULE PO SCH ×2 (08:06→16:35)
[2018-12-28 08:38] VITALS: BP 137/77
[2018-12-28] MEDS: NICOTINE 14 MG/24 HOUR PATCH TD PRN (09:36)
[2018-12-28] MEDS: TOPIRAMATE 100 MG TABLET PO SCH (16:35)
[2018-12-28] MEDS: LORazepam 2 MG TABLET PO PRN (16:35)
[2018-12-28 16:44] VITALS: BP 143/77
[2018-12-28 20:47] VITALS: BP 122/69
[2018-12-28] MEDS: QUEtiapine FUMARATE 200 MG TABLET PO SCH (20:48)
[2018-12-29 04:54] VITALS: BP 117/75
[2018-12-29 08:30] VITALS: BP 114/67
[2018-12-29] MEDS: CHOLECALCIFEROL (VIT D3) 1,000 UNITS TABLET PO SCH (08:35)
[2018-12-29] MEDS: LISINOPRIL 20 MG TABLET PO SCH (08:35)
[2018-12-29] MEDS: FOLIC ACID 1 MG TABLET PO SCH (08:35)
[2018-12-29] MEDS: ATENOLOL 50 MG TABLET PO SCH (08:35)
[2018-12-29] MEDS: HydrALAZINE HCL 25 MG TABLET PO SCH ×2 (08:35→20:50)
[2018-12-29] MEDS: TOPIRAMATE 100 MG TABLET PO SCH ×2 (08:35→16:31)
[2018-12-29] MEDS: DULoxetine HCL 60 MG CAPSULE PO SCH ×2 (08:35→16:31)
[2018-12-29] MEDS: QUEtiapine FUMARATE 300 MG TABLET PO SCH (08:35)
[2018-12-29] MEDS: BusPIRone HCL 10 MG TABLET PO SCH ×3 (08:35→16:31)
[2018-12-29] MEDS: LORazepam 2 MG TABLET PO PRN (10:10)
[2018-12-29 16:18] VITALS: BP 109/68
[2018-12-29] MEDS: NICOTINE 14 MG/24 HOUR PATCH TD PRN (16:40)
[2018-12-29 20:49] VITALS: BP 119/67
[2018-12-29] MEDS: QUEtiapine FUMARATE 200 MG TABLET PO SCH (20:50)
[2018-12-30 09:00] VITALS: BP 118/69
[2018-12-30] MEDS: QUEtiapine FUMARATE 300 MG TABLET PO SCH (09:01)
[2018-12-30] MEDS: DULoxetine HCL 60 MG CAPSULE PO SCH ×2 (09:01→16:28)
[2018-12-30] MEDS: LISINOPRIL 20 MG TABLET PO SCH (09:01)
[2018-12-30] MEDS: ATENOLOL 50 MG TABLET PO SCH (09:01)
[2018-12-30] MEDS: BusPIRone HCL 10 MG TABLET PO SCH ×3 (09:01→16:28)
[2018-12-30] MEDS: FOLIC ACID 1 MG TABLET PO SCH (09:01)
[2018-12-30] MEDS: HydrALAZINE HCL 25 MG TABLET PO SCH ×2 (09:01→20:40)
[2018-12-30] MEDS: CHOLECALCIFEROL (VIT D3) 1,000 UNITS TABLET PO SCH (09:01)
[2018-12-30] MEDS: TOPIRAMATE 100 MG TABLET PO SCH ×2 (09:02→16:28)
[2018-12-30 16:23] VITALS: BP 108/60
[2018-12-30 20:40] VITALS: BP 124/66
[2018-12-30] MEDS: QUEtiapine FUMARATE 200 MG TABLET PO SCH (20:40)
[2018-12-30] MEDS: ZOLPIDEM TARTRATE 10 MG TABLET PO PRN (21:13)
[2018-12-31 02:25] VITALS: BP 115/79
[2018-12-31 08:10] VITALS: BP 116/72
[2018-12-31 08:22] VITALS: BP 109/65
[2018-12-31] MEDS: QUEtiapine FUMARATE 300 MG TABLET PO SCH (08:23)
[2018-12-31] MEDS: FOLIC ACID 1 MG TABLET PO SCH (08:23)
[2018-12-31] MEDS: LISINOPRIL 20 MG TABLET PO SCH (08:23)
[2018-12-31] MEDS: TOPIRAMATE 100 MG TABLET PO SCH ×2 (08:23→16:35)
[2018-12-31] MEDS: HydrALAZINE HCL 25 MG TABLET PO SCH ×2 (08:23→20:38)
[2018-12-31] MEDS: BusPIRone HCL 10 MG TABLET PO SCH ×3 (08:23→16:35)
[2018-12-31] MEDS: CHOLECALCIFEROL (VIT D3) 1,000 UNITS TABLET PO SCH (08:23)
[2018-12-31] MEDS: ATENOLOL 50 MG TABLET PO SCH (08:23)
[2018-12-31] MEDS: DULoxetine HCL 60 MG CAPSULE PO SCH ×2 (08:23→16:35)
[2018-12-31 16:51] VITALS: BP 103/60
[2018-12-31 20:36] VITALS: BP 124/73
[2018-12-31] MEDS: QUEtiapine FUMARATE 200 MG TABLET PO SCH (20:38)
[2018-12-31] MEDS: ZOLPIDEM TARTRATE 10 MG TABLET PO PRN (22:01)
[2019-01-01 06:53] VITALS: BP 132/76
[2019-01-01 08:18] VITALS: BP 128/92
[2019-01-01] MEDS: HydrALAZINE HCL 25 MG TABLET PO SCH ×2 (08:33→20:33)
[2019-01-01] MEDS: ATENOLOL 50 MG TABLET PO SCH (08:33)
[2019-01-01] MEDS: QUEtiapine FUMARATE 300 MG TABLET PO SCH (08:33)
[2019-01-01] MEDS: LISINOPRIL 20 MG TABLET PO SCH (08:33)
[2019-01-01] MEDS: BusPIRone HCL 10 MG TABLET PO SCH ×3 (08:33→16:32)
[2019-01-01] MEDS: DULoxetine HCL 60 MG CAPSULE PO SCH ×2 (08:33→16:32)
[2019-01-01] MEDS: TOPIRAMATE 100 MG TABLET PO SCH ×2 (08:33→16:32)
[2019-01-01] MEDS: FOLIC ACID 1 MG TABLET PO SCH (08:33)
[2019-01-01] MEDS: CHOLECALCIFEROL (VIT D3) 1,000 UNITS TABLET PO SCH (08:33)
[2019-01-01 16:59] VITALS: BP 111/67
[2019-01-01] MEDS: NICOTINE 14 MG/24 HOUR PATCH TD PRN (20:21)
[2019-01-01 20:32] VITALS: BP 114/68
[2019-01-01] MEDS: QUEtiapine FUMARATE 200 MG TABLET PO SCH (20:33)
[2019-01-02 02:10] VITALS: BP 120/60
[2019-01-02] MEDS: ZOLPIDEM TARTRATE 10 MG TABLET PO PRN ×2 (02:13→21:22)
[2019-01-02] MEDS: FOLIC ACID 1 MG TABLET PO SCH (08:12)
[2019-01-02] MEDS: LISINOPRIL 20 MG TABLET PO SCH (08:12)
[2019-01-02] MEDS: CHOLECALCIFEROL (VIT D3) 1,000 UNITS TABLET PO SCH (08:13)
[2019-01-02] MEDS: QUEtiapine FUMARATE 300 MG TABLET PO SCH (08:13)
[2019-01-02] MEDS: ATENOLOL 50 MG TABLET PO SCH (08:13)
[2019-01-02] MEDS: HydrALAZINE HCL 25 MG TABLET PO SCH ×2 (08:13→20:39)
[2019-01-02] MEDS: DULoxetine HCL 60 MG CAPSULE PO SCH ×2 (08:13→16:37)
[2019-01-02] MEDS: TOPIRAMATE 100 MG TABLET PO SCH ×2 (08:13→16:40)
[2019-01-02] MEDS: BusPIRone HCL 10 MG TABLET PO SCH ×3 (08:13→16:37)
[2019-01-02 08:19] VITALS: BP 110/67
[2019-01-02 16:21] VITALS: BP 118/70
[2019-01-02] MEDS: PETROLATUM,WHITE 28 GM JELLY TP PRN (16:37)
[2019-01-02] MEDS: NICOTINE 14 MG/24 HOUR PATCH TD PRN (16:39)
[2019-01-02 20:38] VITALS: BP 133/77
[2019-01-02] MEDS: QUEtiapine FUMARATE 200 MG TABLET PO SCH (20:39)
[2019-01-03 00:10] VITALS: BP 131/71
[2019-01-03] MEDS: HydrALAZINE HCL 25 MG TABLET PO SCH ×2 (08:22→20:28)
[2019-01-03] MEDS: DULoxetine HCL 60 MG CAPSULE PO SCH ×2 (08:22→17:04)
[2019-01-03] MEDS: ATENOLOL 50 MG TABLET PO SCH (08:22)
[2019-01-03] MEDS: FOLIC ACID 1 MG TABLET PO SCH (08:22)
[2019-01-03] MEDS: QUEtiapine FUMARATE 300 MG TABLET PO SCH (08:22)
[2019-01-03] MEDS: BusPIRone HCL 10 MG TABLET PO SCH ×3 (08:23→17:04)
[2019-01-03] MEDS: CHOLECALCIFEROL (VIT D3) 1,000 UNITS TABLET PO SCH (08:23)
[2019-01-03] MEDS: LISINOPRIL 20 MG TABLET PO SCH (08:23)
[2019-01-03] MEDS: TOPIRAMATE 100 MG TABLET PO SCH ×2 (08:23→17:04)
[2019-01-03 08:32] VITALS: BP 136/67
[2019-01-03] MEDS: LORazepam 2 MG TABLET PO PRN ×2 (09:41→16:03)
[2019-01-03 16:11] VITALS: BP 116/61
[2019-01-03] MEDS: QUEtiapine FUMARATE 200 MG TABLET PO SCH (20:29)
[2019-01-04 01:27] VITALS: BP 118/78
[2019-01-04] MEDS: FOLIC ACID 1 MG TABLET PO SCH (08:22)
[2019-01-04] MEDS: ATENOLOL 50 MG TABLET PO SCH (08:22)
[2019-01-04] MEDS: LISINOPRIL 20 MG TABLET PO SCH (08:22)
[2019-01-04] MEDS: CHOLECALCIFEROL (VIT D3) 1,000 UNITS TABLET PO SCH (08:23)
[2019-01-04] MEDS: TOPIRAMATE 100 MG TABLET PO SCH ×2 (08:23→16:31)
[2019-01-04] MEDS: BusPIRone HCL 10 MG TABLET PO SCH ×3 (08:23→16:31)
[2019-01-04] MEDS: DULoxetine HCL 60 MG CAPSULE PO SCH ×2 (08:23→16:31)
[2019-01-04] MEDS: HydrALAZINE HCL 25 MG TABLET PO SCH ×2 (08:23→20:28)
[2019-01-04] MEDS: QUEtiapine FUMARATE 300 MG TABLET PO SCH (08:23)
[2019-01-04 08:36] VITALS: BP 119/68
[2019-01-04 16:21] VITALS: BP 117/60
[2019-01-04 20:22] VITALS: BP 128/83
[2019-01-04] MEDS: QUEtiapine FUMARATE 200 MG TABLET PO SCH (20:29)
[2019-01-04] MEDS: ZOLPIDEM TARTRATE 10 MG TABLET PO PRN (21:34)
[2019-01-05 00:36] VITALS: BP 112/78
[2019-01-05] MEDS: DULoxetine HCL 60 MG CAPSULE PO SCH ×2 (08:17→16:38)
[2019-01-05] MEDS: BusPIRone HCL 10 MG TABLET PO SCH ×3 (08:17→16:38)
[2019-01-05] MEDS: ATENOLOL 50 MG TABLET PO SCH (08:17)
[2019-01-05] MEDS: LISINOPRIL 20 MG TABLET PO SCH (08:17)
[2019-01-05] MEDS: HydrALAZINE HCL 25 MG TABLET PO SCH ×2 (08:17→20:42)
[2019-01-05] MEDS: QUEtiapine FUMARATE 300 MG TABLET PO SCH (08:17)
[2019-01-05] MEDS: TOPIRAMATE 100 MG TABLET PO SCH ×2 (08:17→16:38)
[2019-01-05] MEDS: FOLIC ACID 1 MG TABLET PO SCH (08:18)
[2019-01-05] MEDS: CHOLECALCIFEROL (VIT D3) 1,000 UNITS TABLET PO SCH (08:18)
[2019-01-05 08:34] VITALS: BP 130/65
[2019-01-05] MEDS: LORazepam 2 MG TABLET PO PRN ×2 (10:08→19:31)
[2019-01-05 16:06] VITALS: BP 114/60
[2019-01-05] MEDS: NICOTINE 14 MG/24 HOUR PATCH TD PRN (19:35)
[2019-01-05 20:36] VITALS: BP 125/84
[2019-01-05] MEDS: QUEtiapine FUMARATE 200 MG TABLET PO SCH (20:42)
[2019-01-06 05:22] VITALS: BP 118/86
[2019-01-06] MEDS: LORazepam 2 MG TABLET PO PRN (05:25)
[2019-01-06 08:25] VITALS: BP 129/77
[2019-01-06] MEDS: CHOLECALCIFEROL (VIT D3) 1,000 UNITS TABLET PO SCH (08:37)
[2019-01-06] MEDS: BusPIRone HCL 10 MG TABLET PO SCH ×3 (08:37→16:29)
[2019-01-06] MEDS: QUEtiapine FUMARATE 300 MG TABLET PO SCH (08:37)
[2019-01-06] MEDS: ATENOLOL 50 MG TABLET PO SCH (08:37)
[2019-01-06] MEDS: DULoxetine HCL 60 MG CAPSULE PO SCH ×2 (08:37→16:29)
[2019-01-06] MEDS: TOPIRAMATE 100 MG TABLET PO SCH ×2 (08:37→16:30)
[2019-01-06] MEDS: FOLIC ACID 1 MG TABLET PO SCH (08:37)
[2019-01-06] MEDS: HydrALAZINE HCL 25 MG TABLET PO SCH ×2 (08:38→20:37)
[2019-01-06] MEDS: LISINOPRIL 20 MG TABLET PO SCH (08:38)
[2019-01-06] MEDS ORDERED: TOPI100T37 PO (10:17)
[2019-01-06] MEDS ORDERED: HYDR25TA84 PO (10:17)
[2019-01-06] MEDS ORDERED: QUET300T2 PO (10:17)
[2019-01-06 16:41] VITALS: BP 110/63
[2019-01-06 20:36] VITALS: BP 119/73
[2019-01-06] MEDS: QUEtiapine FUMARATE 200 MG TABLET PO SCH (20:37)
[2019-01-07 05:40] VITALS: BP 100/68
[2019-01-07 08:26] VITALS: BP 137/77
[2019-01-07] MEDS: BusPIRone HCL 10 MG TABLET PO SCH ×3 (08:28→17:20)
[2019-01-07] MEDS: CHOLECALCIFEROL (VIT D3) 1,000 UNITS TABLET PO SCH (08:28)
[2019-01-07] MEDS: TOPIRAMATE 100 MG TABLET PO SCH ×2 (08:28→17:19)
[2019-01-07] MEDS: LISINOPRIL 20 MG TABLET PO SCH (08:28)
[2019-01-07] MEDS: FOLIC ACID 1 MG TABLET PO SCH (08:28)
[2019-01-07] MEDS: QUEtiapine FUMARATE 300 MG TABLET PO SCH (08:29)
[2019-01-07] MEDS: DULoxetine HCL 60 MG CAPSULE PO SCH ×2 (08:29→17:19)
[2019-01-07] MEDS: ATENOLOL 50 MG TABLET PO SCH (08:29)
[2019-01-07] MEDS: HydrALAZINE HCL 25 MG TABLET PO SCH ×2 (08:29→20:31)
[2019-01-07 16:20] VITALS: BP 131/64
[2019-01-07] MEDS: NICOTINE 14 MG/24 HOUR PATCH TD PRN (19:56)
[2019-01-07 20:30] VITALS: BP 129/79
[2019-01-07] MEDS: QUEtiapine FUMARATE 200 MG TABLET PO SCH (20:31)
[2019-01-08 01:19] VITALS: BP 124/80
[2019-01-08] MEDS: BusPIRone HCL 10 MG TABLET PO SCH ×3 (08:15→16:26)
[2019-01-08] MEDS: DULoxetine HCL 60 MG CAPSULE PO SCH ×2 (08:15→16:26)
[2019-01-08] MEDS: HydrALAZINE HCL 25 MG TABLET PO SCH ×2 (08:16→20:23)
[2019-01-08] MEDS: ATENOLOL 50 MG TABLET PO SCH (08:16)
[2019-01-08] MEDS: FOLIC ACID 1 MG TABLET PO SCH (08:16)
[2019-01-08] MEDS: TOPIRAMATE 100 MG TABLET PO SCH ×2 (08:16→16:26)
[2019-01-08] MEDS: QUEtiapine FUMARATE 300 MG TABLET PO SCH (08:16)
[2019-01-08] MEDS: CHOLECALCIFEROL (VIT D3) 1,000 UNITS TABLET PO SCH (08:16)
[2019-01-08] MEDS: LISINOPRIL 20 MG TABLET PO SCH (08:16)
[2019-01-08 08:29] VITALS: BP 134/70
[2019-01-08 16:45] VITALS: BP 116/60
[2019-01-08 20:20] VITALS: BP 132/82
[2019-01-08] MEDS: QUEtiapine FUMARATE 200 MG TABLET PO SCH (20:23)
[2019-01-09 00:50] VITALS: BP 126/80
[2019-01-09 08:15] VITALS: BP 156/85
[2019-01-09] MEDS: CHOLECALCIFEROL (VIT D3) 1,000 UNITS TABLET PO SCH (08:34)
[2019-01-09] MEDS: FOLIC ACID 1 MG TABLET PO SCH (08:34)
[2019-01-09] MEDS: DULoxetine HCL 60 MG CAPSULE PO SCH (08:34)
[2019-01-09] MEDS: ATENOLOL 50 MG TABLET PO SCH (08:34)
[2019-01-09] MEDS: LISINOPRIL 20 MG TABLET PO SCH (08:34)
[2019-01-09] MEDS: BusPIRone HCL 10 MG TABLET PO SCH ×2 (08:35→12:42)
[2019-01-09] MEDS: QUEtiapine FUMARATE 300 MG TABLET PO SCH (09:00)
[2019-01-09] MEDS: TOPIRAMATE 100 MG TABLET PO SCH (09:00)
[2019-01-09] MEDS: HydrALAZINE HCL 25 MG TABLET PO SCH (10:04)
[2019-01-09 10:06] VITALS: BP 124/64
[2019-01-09] MEDS: NICOTINE 14 MG/24 HOUR PATCH TD PRN (10:08)
== END 2019-01-09 14:20 | disposition home or self-care (01) | DRG 885 ==
LOC: B2X 18:50
PROVIDERS: ADMIT Psychiatry & Neurology Psychiatry; ATTEND Psychiatry & Neurology Psychiatry
DX: F25.0 Schizoaffective disorder, bipolar type (principal); F15.20 Other stimulant dependence, uncomplicated; R45.851 Suicidal ideations; F41.9 Anxiety disorder, unspecified; I10 Essential (primary) hypertension; K59.00 Constipation, unspecified; J45.909 Unspecified asthma, uncomplicated; E55.9 Vitamin D deficiency, unspecified; D72.819 Decreased white blood cell count, unspecified; F10.20 Alcohol dependence, uncomplicated; M19.90 Unspecified osteoarthritis, unspecified site; Z79.899 Other long term (current) drug therapy; Z81.8 Family history of other mental and behavioral disorders; Z91.19 Patient's noncompliance with other medical treatment and regimen
CPT/HCPCS: 83036; 84439; 84443; 86592; 87081